=== PATIENT | male | born 1985 | race African-American/Black ===

== ENCOUNTER 2025-07-08 12:20 | Emergency (ER) | payer OTHER, SELFPAY ==
[2025-07-08 12:23] VITALS: BP 128/87
--- NOTE | 2025-07-08 13:05 | ED.SKININJ ---
HPI-Injury
General
Chief Complaint: Eye Problems
Source: patient
Exam Limitations: none
Time Seen by Provider: 07/08/25 12:50
Nursing documentation reviewed up to this point in time: agreed with
History of Present Illness-Injury
Initial Injury comments:
40-year-old male with no significant past medical history states he awakened this morning with pain and irritation, watering and redness of the right eye. He denies change in vision save for mild blurriness due to the watering. He denies headache.
No recollection of injury.
Past History
Past History
ED Past Medical History: None
ED Past Surgical History: None
Social History
Tobacco: Non-smoker
Alcohol: Occasional
Personal:
Living: with family
Employment: Employed
Review of Systems
Review of Systems
Allergies reviewed?: Yes
All Other Systems: ROS reviewed and negative except as documented in HPI and ROS
Phy Exam
Physical Exam
Physical Exam:
PHYSICAL EXAMINATION:
General: no apparent distress, not acutely ill
Neuro: alert and oriented.
Psychiatric: well kept. interactive and cooperative
Musculoskeletal: Moves with ease
Skin: Warm, pink.
Eye Exam
Eye Exam: PERRL, EOMI, globe normal, visual acuity normal, visual marlow normal and other (Conjunctiva injected, lid everted, no foreign body. Good relief with topical anesthetic, fluorescein stain reveals a moderate sized superficial corneal
abrasion between 4 and 8:00)
Course
Orders/Labs/Results
Orders:
Orders
07/08/25 12:50
Visual Acuity- Treatment ONCE
07/08/25 13:02
Gentamicin [Genoptic 0.3% Eye Drops] See Dose Instructions OPHTH NOW STA
07/08/25 13:03
Fluorescein Sodium [Ful-Parul] 3 mg .ROUTE .[facility]
Tetracaine HCl [Tetracaine 0.5% Ophthalmic Solution] 1 drop .ROUTE .[facility] ONE
Vital Signs
Initial and Last Documented VS:
Initial Vital Signs
Temp Pulse Resp BP Pulse Ox
97.5 F 71 16 128/87 98
07/08/25 12:23 07/08/25 12:23 07/08/25 12:23 07/08/25 12:23 07/08/25 12:23
Last Documented Vital Signs
Temp Pulse Resp BP Pulse Ox
97.5 F 71 16 128/87 98
07/08/25 12:23 07/08/25 12:23 07/08/25 12:23 07/08/25 12:23 07/08/25 13:09
MDM/Problems Addressed
Differential Diagnosis Includes:
Corneal abrasion, foreign body
MDM/Problems Addressed:
40-year-old male with no significant past medical history states he awakened this morning with pain and irritation, watering and redness of the right eye. He denies change in vision save for mild blurriness due to the watering. He denies headache.
No recollection of injury.
Moderate size superficial corneal abrasion between 8 and 4:00 over the cornea. Good relief with topical at anesthetic.
Visual acuity noted
Gentamicin eyedrops ordered and given to take home
*Pulse Oximetry
SaO2: 98
Oxygen Mode of Delivery: Room air
Patient hypoxic: not evaluated
*Critical Care Note
Total Time (30-74mins, 75-104mins- exclusive of procedures): Not Applicable
ED Attending Note
-
Portions of this chart may have been created with voice recognition software.� Occasional wrong word or��sound alike� substitutions may have occurred due to the inherent limitations of voice recognition software.
Discharge Plan
Departure
Patient Disposition: Home (Routine Discharge)
Date of Disposition: 07/08/25
Time of Disposition: 13:04
Patient with high blood pressure during this ER visit?: No
Condition: Good
Discharge Problem:
Abrasion of right cornea
Instructions: Corneal Abrasion (DC), How to Use Eye Drops
Referrals:
UNKNOWN - PT DOES,NOT KNOW [Family Provider]
Zehra Sheehan MD [Active, Ophthalmology] - Follow up in 2-3 days
Activity Restrictions/Additional Instructions:
As we discussed, apply the gentamicin eyedrops as follows: 1 to 2 drops in affected eye 4 times a day for 5 to 7 days until your eye is better.
See the eye doctor if you are not a lot better in 2 days or not 100% better in 1 week
Return here immediately for worsening eye pain, loss of vision or feeling worse in any way.
Cool compress may help
Tylenol, ibuprofen or Aleve may help
Interventions
Interventions:
*Risk Screen - Suicide Last Done: 07/08/25 12:23
*Neglect/Abuse Screening Last Done: 07/08/25 12:23
*Nursing Disposition Last Done: 07/08/25 13:14
Discharge Date and Time
Discharge Date/Time: 07/08/25 13:14
Print Language: [id number]
[2025-07-08] MEDS: GENOPTIC 0.3% EYE DROPS 1 DROP OPHTH (13:08)
== END 2025-07-08 13:14 | disposition home or self-care (01) ==
LOC: EMR 12:20
PROVIDERS: EMERGENCY PHYSICIAN Emergency Medicine
DX: S05.01XA Injury of conjunctiva and corneal abrasion without foreign body, right eye, initial encounter (principal); X58.XXXA Exposure to other specified factors, initial encounter
CPT/HCPCS: 99283